=== PATIENT | male | born 1950 | race Caucasian/White ===

== ENCOUNTER 2024-06-22 19:22 | Emergency (ER) | payer BC ==
[2024-06-22] MEDS ORDERED: Boostrix 0.5 ML (Tdap) VIAL (>/=7 yrs of age) ONE (19:50)
[2024-06-22] MEDS ORDERED: Acetaminophen 500 MG TAB ONE (19:50)
[2024-06-22] MEDS ORDERED: Amoxicillin/Potassium Clav 875 MG TAB ONE (20:35)
[2024-06-22] MEDS ORDERED: Lidocaine 1% PF 5 ML VIAL ONE (21:47)
== END 2024-06-22 22:33 | disposition home or self-care (01) ==
LOC: BURERS 19:22
DX: S02.2XXA Fracture of nasal bones, initial encounter for closed fracture (principal); S01.21XA Laceration without foreign body of nose, initial encounter; I10 Essential (primary) hypertension; W01.0XXA Fall on same level from slipping, tripping and stumbling without subsequent striking against object, initial encounter; Z23 Encounter for immunization
CPT/HCPCS: 12011; 70486; 90471; 90715